=== PATIENT | male | born 1985 | race Caucasian/White ===

== ENCOUNTER 2016-11-25 07:13 | Emergency (ER) | payer BC, SELFPAY ==
[2016-11-25 07:14] VITALS: BMI 20.5
--- NOTE | 2016-11-25 08:10 | C.PDOC ---
History Of Present Illness 31 year old male presents to the ED with complaints of epigastric and LUQ pain beginning last night and one episode of vomiting with blood streaks. Patient states he ate meat at a BBQ yest, and symptoms began soon after. He states he did not try any medications for symptoms. Patient denies diarrhea, dysuria, fever, chest pain, or shortness of breath. Time Seen by Provider: 11/25/16 07:25 Chief Complaint (Nursing): Abdominal Pain History Per: Patient History/Exam Limitations: no limitations Onset/Duration Of Symptoms: Hrs Current Symptoms Are (Timing): Still Present Severity: Moderate Location Of Pain/Discomfort: Epigastric, LUQ Radiation Of Pain To:: None Quality Of Discomfort: "Pain" Associated Symptoms: Vomiting. denies: Fever, Chills, Diarrhea Recent travel outside of the [place]: No Past Medical History Reviewed: Historical Data, Nursing Documentation, Vital Signs Vital Signs: Last Vital Signs Temp 98.5 F 11/25/16 08:56 Pulse 70 11/25/16 08:56 Resp 15 11/25/16 08:56 BP 102/69 11/25/16 08:56 Pulse Ox 99 11/25/16 08:56 - Medical History PMH: No Chronic Diseases - [facility] Procedures APPLICATION OF SPLINT (07/20/14) ARTHROPLASTY OF MCP & INTERPHALANG JT W/O IMPLANT (10/26/14) Family History: States: No Known Family Hx - Social History Hx Tobacco Use: No Hx Alcohol Use: Yes Hx Substance Use: No - Immunization History Hx Tetanus Toxoid Vaccination: No Hx Influenza Vaccination: No Hx Pneumococcal Vaccination: No Review Of Systems Except As Marked, All Systems Reviewed And Found Negative. Constitutional: Negative for: Fever, Chills Cardiovascular: Negative for: Chest Pain, Palpitations Respiratory: Negative for: Cough, Shortness of Breath Gastrointestinal: Positive for: Vomiting, Abdominal Pain. Negative for: Nausea , Diarrhea Genitourinary: Negative for: Dysuria, Hematuria Physical Exam - Physical Exam Appears: Well, Non-toxic, No Acute Distress Skin: Warm, Dry Head: Normacephalic Eye(s): bilateral: Normal Inspection Oral Mucosa: Moist Neck: Supple Cardiovascular: Rhythm Regular Respiratory: Normal Breath Sounds, No Rales, No Rhonchi, No Wheezing Gastrointestinal/Abdominal: Bowel Sounds, Soft, Tenderness (epigastric and LUQ mild TTP), No Distention, No Guarding, No Rebound, Other ((-) McBurney's. (-) Thacker's. ) Back: No CVA Tenderness Neurological/Psych: Oriented x3 ED Course And Treatment - Laboratory Results Result Diagrams: 11/25/16 08:07 11/25/16 08:07 O2 Sat by Pulse Oximetry: 100 (room air ) Pulse Ox Interpretation: Normal Progress Note: Blood work ordered and reviewed. Patient given IV NS bolus, IV zofran, and IV protonix. Reevaluation Time: 08:50 Reassessment Condition: Improved (Patient reassessed, is resting comfortably, in no current pain/distress. On exam, abdomen is soft and nontender. Blood work is unremarkable and patient is well appearing, with normal vitals. Rxs given for Pepcid and Zofran, and patient instructed to follow up with PMD/ clinic in 1-2 days. He understands he should return to Ed if symptroms worsen.) Disposition Counseled Patient/Family Regarding: Studies Performed, Diagnosis, Need For Followup, Rx Given - Disposition Referrals: [facility] [Outside] Disposition: HOME/ ROUTINE Disposition Time: 08:50 Condition: STABLE Additional Instructions: SEGUIMIENTO CON MARCANO DOCTOR / CLNICA EN 1-2 THOMAS USE LOS MEDICAMENTOS QUE JAILENE NECESARIOS BEBIDA DE FLUIDOS BONI DEVUELVA A LA JREI DE EMERGENCIA SI LOS SNTOMAS EMPEORARAN Prescriptions: Famotidine [Pepcid] 20 mg PO BID PRN #15 tab PRN Reason: abdominal Ondansetron [Zofran Odt] 4 mg PO Q8 PRN #10 odt PRN Reason: Nausea/Vomiting Instructions: Acute Nausea and Vomiting (ED), Epigastric Pain (ED) Forms: [employer] (Ugandan) Print Language: ARGENTINE - POA Present On Arrival: None - Clinical Impression Clinical Impression: Epigastric abdominal pain, Nausea, Vomiting - Scribe Statement The provider has reviewed the documentation as recorded by the Scribe Cathy Glynn All medical record entries made by the Scribe were at my direction and personally dictated by me. I have reviewed the chart and agree that the record accurately reflects my personal performance of the history, physical exam, medical decision making, and the department course for this patient. I have also personally directed, reviewed, and agree with the discharge instructions and disposition.
[2016-11-25 08:14] LABS: BASO # 0.1 K/uL (0.0-0.2); BASO % 0.9 % (0.0-2.0); EOS # 0.1 K/uL (0.0-0.7); EOS % 1.6 % (0.0-4.0); HEMATOCRIT 48.6 % (35.0-51.0); LYMPH # 1.3 K/uL (1.0-4.3); MEAN CELL VOLUME 86.1 fL (80.0-94.0); MEAN CORPUSCULAR HEMOGLOBIN 29.3 pg (27.0-31.0); MEAN CORPUSCULAR HGB CONC 34.1 g/dL (33.0-37.0); MEAN PLATELET VOLUME 8.8 fL (7.2-11.7); MONO # 0.4 K/uL (0.0-0.8); MONO % 5.4 % (0.0-10.0); NRBC % 0.2 % (0.0-2.0); RED CELL DISTRIBUTION WIDTH 12.8 % (11.5-14.5); WHITE BLOOD COUNT 6.6 K/uL (4.8-10.8)
[2016-11-25 08:20] LABS: CHLORIDE 99 mmol/L (98-107); POTASSIUM 4.7 mmol/L (3.6-5.2); SODIUM 140 mmol/L (132-148)
[2016-11-25 08:22] LABS: ALB/GLOB RATIO 1.2 (1.0-2.1); ALKALINE PHOSPHATASE 77 U/L (38-126); AST/SGOT 43 U/L (17-59); BILIRUBIN,TOTAL 1.2 mg/dL (0.2-1.3); BLOOD UREA NITROGEN 15 mg/dL (9-20); CARBON DIOXIDE 29 mmol/L (22-30); GFR AFRICAN-AMERICAN > 60; TOTAL PROTEIN 8.4 g/dL (6.3-8.3)
[2016-11-25 08:23] LABS: ALT/SGPT 38 U/L (21-72); CALCIUM 10.1 mg/dl (8.6-10.4); GLUCOSE,RANDOM 96 mg/dL (75-110)
[2016-11-25 08:57] VITALS: BP 102/69; PULSE 70; RESP 15; TEMP 98.5
[2016-11-29 10:24] VITALS: O2SAT 100
== END 2016-11-25 08:57 | disposition home or self-care (01) ==
LOC: C.ER 07:13
DX: R10.13 Epigastric pain (principal); R11.2 Nausea with vomiting, unspecified
CPT/HCPCS: 80053; 83690; 85025; 96374; 96375; 99283; C9113; J2405